=== PATIENT | male | born 1995 | race African-American/Black ===

== ENCOUNTER 2023-02-07 18:17 | Inpatient (IN) | payer OTHER ==
[~2023-02-07 18:17] MED LIST: Iopamidol-370 76% 500 ML MDV (1 ML CHARGE) ONE
[2023-02-07 18:42] LABS: #Basophils 0.1 thou/uL (0.0-0.2); #Eosinphils 0.4 thou/uL (0.0-0.7); #Monocytes 0.7 thou/uL (0.11-0.59); #Neutrophils 3.6 thou/uL (1.40-6.50); %Basophils 1.2 % (0.0-1.0); %Eosinophils 4.6 % (0.0-10.0); %Lymphocytes 46.5 % (21.0-51.0); %Monocytes 6.8 % (0.0-10.0); %Neutrophils 37.4 % (42.0-75.0); Hematocrit 42.3 % (42.0-52.0); Hemoglobin 14.9 g/dL (14.0-18.0); Mean Corpuscular HGB CONC 35.2 g/dL (32.0-36.0); Mean Corpuscular Hemoglobin 31.7 pg (27.0-31.0); Mean Platelet Volume 9.5 fL (7.4-10.4); Platelet Count 188 10x3/uL (130-400); RBC Distribution Width 11.8 % (11.5-14.5); White Blood Cell (WBC) Count 9.6 10x3/uL (4.8-10.8)
[2023-02-07 19:16] LABS: Acetaminophen Less than 10 mcg/mL (10.0-30.0); Alcohol 40.6 mg/dL (Less than 10); Salicylate Less than 8.0 mg/dL (15.0-30.0)
[2023-02-07] MEDS ORDERED: CEFAZOLIN 2 GM VIAL ONE (19:17)
[2023-02-07] MEDS ORDERED: Sodium Chloride 0.9% 0 ML ONE (19:17)
[2023-02-07] MEDS ORDERED: Sodium Chloride 0.9% 100 ML ONE (19:18)
[2023-02-07 19:22] LABS: ALT (SGPT) 158 U/L (8-55); AST (SGOT) 271 U/L (5-34); Albumin 4.4 g/dL (3.5-5.0); Alcohol 40.7 mg/dL (Less than 10); Alkaline Phosphatase 83 U/L (40-110); Anion Gap 20 mmol/L (10-20); BUN (Urea Nitrogen) 24 mg/dL (8.9-20.6); Bilirubin, Total 0.3 mg/dL (0.2-1.2); Calc. Creatinine Clearance 0 mL/min (70-130); Calcium 8.8 mg/dL (7.8-10.44); Carbon Dioxide 14 mmol/L (22-29); Chloride 105 mmol/L (98-107); Estimated GFR 56; Globulin 3.5 g/dL (2.4-3.5); Glucose 109 mg/dL (70-105); Lipase 75 U/L (8-78); Potassium 3.4 mmol/L (3.5-5.1); Protein, Total 7.9 g/dL (6.0-8.3); Sodium 136 mmol/L (136-145)
[2023-02-07] MEDS ORDERED: Boostrix 0.5 ML (Tdap) VIAL (>/=7 yrs of age) ONE (19:23)
[2023-02-07] MEDS ORDERED: hydrALAZINE 20 MG/ML VIAL SLOW IVP PRN (20:27)
[2023-02-07] MEDS ORDERED: Morphine 2 MG/ML VIAL SLOW IVP PRN (20:27)
[2023-02-07] MEDS ORDERED: Ipratropium/Albuterol 3 ML NEB NEB PRN (20:27)
[2023-02-07] MEDS ORDERED: Ondansetron PF 4 MG/2 ML Vial IVP PRN (20:27)
[2023-02-07] MEDS ORDERED: traMADol HCl 50 MG TAB PO PRN (20:29)
[2023-02-07] MEDS ORDERED: Sodium Chloride 0.9% 1,000 ML IV SCH (20:30)
[2023-02-07 20:40] LABS: Bacteria/HPF None Seen HPF (None Seen); Bilirubin Negative (Negative); Blood, Urine 3+ (Negative); CAUTI Indications for Culture Alt mental st,lethar; Clarity Clear (Clear); Glucose, Urine (Dipstick) Normal (Negative); Ketone, Urine Negative (Negative); Leukocyte Negative Leu/uL (Negative); Nitrite Negative (Negative); Protein, Urine (Dipstick) 70 mg/dL (Neg-Trace); RBC/HPF Greater than 50 HPF (0-3); Specific Gravity, Urine 1.048 (1.002-1.036); Squamous Epithelial 0-3 HPF (0-3); Urobilinogen Normal mg/dL (Less than 2); WBC/HPF 21-50 HPF (0-3); pH, Urine 6.5 (5.0-9.0)
[2023-02-07 20:43] LABS: Urine Culture Reflex Yes Yes
[2023-02-07 20:51] LABS: Amphetamine Not Detected (NotDetected); Barbiturates Screen Not Detected (NotDetected); Benzodiazepine Screen Not Detected (NotDetected); Cocaine Metabolite Screen Not Detected (NotDetected); Methadone Not Detected (NotDetected); Methamphetamine Not Detected (NotDetected); Opiate Screen Not Detected (NotDetected); Oxycodone Screen Not Detected (NotDetected); Phencyclidine (PCP) Not Detected (NotDetected); THC/Cannabinoid Screen Detected (NotDetected); Tricyclic Screen Not Detected (NotDetected)
[2023-02-07] MEDS: Cyclobenzaprine 10 MG TAB PO PRN (21:35)
[2023-02-07] MEDS: Gabapentin 300 MG CAP PO SCH (21:35)
[2023-02-07] MEDS: Acetaminophen 500 MG TAB PO SCH (21:36)
[2023-02-07] MEDS: Famotidine/PF 20 mg/2ml Vial SLOW IVP SCH (21:36)
[2023-02-07] MEDS: Senokot S 8.6-50 MG TAB PO SCH (21:37)
[2023-02-07] MEDS: Sodium Chloride 0.9% 1,000 ML IV SCH (21:41)
[2023-02-07 21:46] LABS: Lactic Acid 2.1 mmol/L (0.5-2.2)
[2023-02-07] MEDS: traMADol HCl 50 MG TAB PO SCH (23:31)
[2023-02-08 00:03] VITALS: BMI 26.9
[2023-02-08] MEDS: Sodium Chloride 0.9% 1,000 ML IV SCH (03:33)
[2023-02-08] MEDS: Acetaminophen 500 MG TAB PO SCH ×4 (03:34→21:14)
[2023-02-08] MEDS: traMADol HCl 50 MG TAB PO SCH ×4 (05:50→23:59)
[2023-02-08 07:04] LABS: #Basophils 0.1 thou/uL (0.0-0.2); #Eosinphils 0.1 thou/uL (0.0-0.7); #Monocytes 1.1 thou/uL (0.11-0.59); #Neutrophils 12.7 thou/uL (1.40-6.50); %Basophils 0.3 % (0.0-1.0); %Eosinophils 0.4 % (0.0-10.0); %Lymphocytes 11.9 % (21.0-51.0); Hematocrit 37.7 % (42.0-52.0); Hemoglobin 13.1 g/dL (14.0-18.0); Mean Corpuscular HGB CONC 34.7 g/dL (32.0-36.0); Mean Corpuscular Hemoglobin 31.1 pg (27.0-31.0); Mean Corpuscular Volume 89.5 fl (78.0-98.0); Mean Platelet Volume 9.6 fL (7.4-10.4); Platelet Count 174 10x3/uL (130-400); Red Blood Cell (RBC) Count 4.21 mill/uL (4.70-6.10); White Blood Cell (WBC) Count 15.9 10x3/uL (4.8-10.8)
[2023-02-08 07:37] LABS: Prothrombin Time 13.3 sec (12.0-14.7)
[2023-02-08 07:38] LABS: PTT 31.8 sec (22.9-36.1)
[2023-02-08] MEDS: Famotidine/PF 20 mg/2ml Vial SLOW IVP SCH ×2 (08:24→21:15)
[2023-02-08] MEDS: Senokot S 8.6-50 MG TAB PO SCH ×2 (08:27→21:15)
[2023-02-08] MEDS: Gabapentin 300 MG CAP PO SCH ×3 (08:29→21:15)
[2023-02-08] MEDS: Polyethylene Glycol 3350 17 GM Packet PO SCH (08:30)
[2023-02-08 08:31] LABS: Anion Gap 11 mmol/L (10-20); BUN (Urea Nitrogen) 20 mg/dL (8.9-20.6); Calc. Creatinine Clearance 81 mL/min (70-130); Calcium 8.8 mg/dL (7.8-10.44); Carbon Dioxide 22 mmol/L (22-29); Chloride 106 mmol/L (98-107); Estimated GFR 83; Glucose 92 mg/dL (70-105); Potassium 3.8 mmol/L (3.5-5.1); Sodium 135 mmol/L (136-145)
[2023-02-08] MEDS ORDERED: Lorazepam 2 MG/ML VIAL SLOW IVP SCH (10:06)
[2023-02-08] MEDS ORDERED: DOBUTamine 500 mg/250 ml 250 ML IVPB SCH (18:15)
[2023-02-08] MEDS: Cyclobenzaprine 10 MG TAB PO PRN (21:16)
[2023-02-09] MEDS: traMADol HCl 50 MG TAB PO SCH ×3 (05:38→18:41)
[2023-02-09] MEDS: Acetaminophen 500 MG TAB PO SCH ×4 (05:39→20:54)
[2023-02-09] MEDS: Gabapentin 300 MG CAP PO SCH ×3 (08:59→20:54)
[2023-02-09] MEDS: Famotidine/PF 20 mg/2ml Vial SLOW IVP SCH (09:01)
[2023-02-09] MEDS: Senokot S 8.6-50 MG TAB PO SCH ×2 (09:01→20:54)
[2023-02-09] MEDS: Polyethylene Glycol 3350 17 GM Packet PO SCH (09:01)
[2023-02-09] MEDS: Famotidine 20 MG TAB PO SCH (20:54)
[2023-02-10] MEDS: Acetaminophen 500 MG TAB PO SCH ×3 (01:09→14:55)
[2023-02-10] MEDS: traMADol HCl 50 MG TAB PO SCH ×3 (01:09→12:31)
[2023-02-10 06:17] LABS: #Basophils 0.1 thou/uL (0.0-0.2); #Monocytes 0.9 thou/uL (0.11-0.59); #Neutrophils 3.9 thou/uL (1.40-6.50); %Basophils 0.8 % (0.0-1.0); %Eosinophils 11.9 % (0.0-10.0); %Lymphocytes 26.5 % (21.0-51.0); %Monocytes 11.2 % (0.0-10.0); %Neutrophils 49.2 % (42.0-75.0); Hematocrit 42.6 % (42.0-52.0); Hemoglobin 14.5 g/dL (14.0-18.0); Mean Corpuscular Hemoglobin 30.9 pg (27.0-31.0); Mean Corpuscular Volume 90.6 fl (78.0-98.0); Mean Platelet Volume 9.8 fL (7.4-10.4); Platelet Count 180 10x3/uL (130-400)
[2023-02-10 07:03] LABS: Anion Gap 16 mmol/L (10-20); BUN (Urea Nitrogen) 14 mg/dL (8.9-20.6); Calc. Creatinine Clearance 80 mL/min (70-130); Calcium 9.3 mg/dL (7.8-10.44); Carbon Dioxide 25 mmol/L (22-29); Chloride 103 mmol/L (98-107); Estimated GFR 82; Glucose 78 mg/dL (70-105); Phosphorus 3.9 mg/dL (2.3-4.7); Potassium 4.6 mmol/L (3.5-5.1); Sodium 139 mmol/L (136-145)
[2023-02-10] MEDS: Polyethylene Glycol 3350 17 GM Packet PO SCH (08:41)
[2023-02-10] MEDS: Famotidine 20 MG TAB PO SCH (08:41)
[2023-02-10] MEDS: Senokot S 8.6-50 MG TAB PO SCH (08:41)
[2023-02-10] MEDS: Gabapentin 300 MG CAP PO SCH ×2 (08:42→14:56)
[2023-02-10 15:11] VITALS: BP 129/82; TEMP 98.6
== END 2023-02-10 17:11 | disposition home or self-care (01) | DRG 536 ==
LOC: EDBD 18:17 → ERS 18:17 → EEVIPCON 19:38 → SURG A 19:38
PROVIDERS: ADMIT Student in an Organized Health Care Education/Training Program; ATTEND Student in an Organized Health Care Education/Training Program
DX: S32.309A Unspecified fracture of unspecified ilium, initial encounter for closed fracture (principal); N17.9 Acute kidney failure, unspecified; S50.02XA Contusion of left elbow, initial encounter; S50.01XA Contusion of right elbow, initial encounter; G89.11 Acute pain due to trauma; V02.90XA Pedestrian on foot injured in collision with two- or three-wheeled motor vehicle, unspecified whether traffic or nontraffic accident, initial encounter
CPT/HCPCS: 36415; 70450; 71045; 71260; 72125; 72141; 72170; 74177; 80048; 80053; 80306; 80307; 81001; 83605; 83690; 83735; 84100; 85025; 85610; 85730; 87086; 90715; 93005; 96365; 96375; J1650; J2060; J3490; J7050; Q9967; S0028